=== PATIENT | male | born 1960 | race African-American/Black ===

== ENCOUNTER 2022-10-29 05:40 | Emergency (ER) | payer BC ==
[~2022-10-29] VITALS: Ht 175.3 cm; Wt 82.0 kg
[2022-10-29 08:30] VITALS: BP 137/69
[2022-10-29 09:41] LABS: BASOPHILS % 0.7 % (0.0-2.0); EOSINOPHILS % 2.5 % (0.0-5.0); HEMATOCRIT. 41.6 % (42.0-52.0); HEMOGLOBIN. 13.5 g/dL (14.0-18.0); LYMPHOCYTES % 45.5 % (20.0-50.0); MEAN CORPUSCULAR HEMOGLOBIN 26.9 pg (28.0-32.0); MEAN CORPUSCULAR VOLUME 82.6 fL (80.0-94.0); MEAN PLATELET VOLUME 7.9 fl (7.4-10.4); MONOCYTES % 7.5 % (2.0-8.0); NEUTROPHILS % 43.8 % (40.0-76.0); PLATELET 241 x1000/uL (130-400); RED BLOOD CELL COUNT 5.03 mill/uL (4.7-6.1); RED CELL DISTRIBUTION WIDTH 14.5 % (11.6-14.6)
[2022-10-29 09:47] LABS: CHLORIDE 105 mEq/L (98-107)
== END 2022-10-29 13:38 | disposition home or self-care (01) ==
LOC: ER 05:40
DX: D64.9 Anemia, unspecified (principal); Z85.9 Personal history of malignant neoplasm, unspecified; R07.89 Other chest pain
CPT/HCPCS: 36415; 71045; 80053; 84484; 85025; 93005; 99285

== ENCOUNTER 2022-12-27 14:19 | Emergency (ER) | payer BC ==
[~2022-12-27] VITALS: Ht 172.7 cm; Wt 79.0 kg
[2022-12-27 17:13] LABS: BASOPHILS % 0.7 % (0.0-2.0); EOSINOPHILS % 1.2 % (0.0-5.0); HEMATOCRIT. 42.7 % (42.0-52.0); LYMPHOCYTES % 45.6 % (20.0-50.0); MEAN CORPUSCULAR VOLUME 82.7 fL (80.0-94.0); MEAN PLATELET VOLUME 7.7 fl (7.4-10.4); MONOCYTES % 5.9 % (2.0-8.0); NEUTROPHILS % 46.6 % (40.0-76.0); PLATELET 218 x1000/uL (130-400); RED BLOOD CELL COUNT 5.16 mill/uL (4.7-6.1); RED CELL DISTRIBUTION WIDTH 14.5 % (11.6-14.6)
[2022-12-27 17:20] LABS: CHLORIDE 108 mEq/L (98-107)
[2022-12-27 17:21] LABS: PROTHROMBIN TIME 10.9 sec (9.6-11.0)
[2022-12-27 17:37] LABS: ETHANOL BLOOD < 10 mg/dL
[2022-12-27] MEDS ORDERED: ACET-2708 MT (18:33)
[2022-12-27] MEDS ORDERED: GABA-529 MT (18:33)
[2022-12-27] MEDS: LIDOCAINE 5% PATCH TOP SCH ×2 (21:28→21:29)
[2022-12-27 21:35] VITALS: BP 128/82
== END 2022-12-27 21:36 | disposition home or self-care (01) ==
LOC: ER 14:19
DX: G62.9 Polyneuropathy, unspecified (principal); M25.512 Pain in left shoulder; I10 Essential (primary) hypertension; Z85.46 Personal history of malignant neoplasm of prostate
CPT/HCPCS: 36415; 70450; 71045; 72125; 80053; 80320; 83690; 83880; 84484; 85025; 85610; 93005; 99285; Z7610; G0480